=== PATIENT | male | born 1975 | race Caucasian/White ===

== ENCOUNTER 2020-11-07 18:59 | Emergency (ER) | payer OTHER ==
[~2020-11-07] VITALS: Ht 175.3 cm; Wt 106.8 kg
[2020-11-07 19:03] VITALS: TEMP 97.9
[2020-11-07 20:23] VITALS: BP 174/85; PULSE 67
== END 2020-11-07 20:23 | disposition home or self-care (01) ==
LOC: COL.ER 18:59
DX: M54.5 Low back pain (principal)